=== PATIENT | female | born 1960 | race Caucasian/White ===

== ENCOUNTER 2022-01-16 15:34 | Inpatient (IN) | payer MEDICARE, OTHER ==
--- NOTE | 2022-01-16 17:14 | ED ---
Wound/Laceration HPI - General Chief Complaint: Wound/Laceration Stated Complaint: Wound care Time Seen by Provider: 01/16/22 16:03 Source: patient, EMS, RN notes reviewed Mode of arrival: EMS - History of Present Illness Initial Comments: This is a 61 year old female who presents to the emergency Department as a transfer from [facility]. She was transferred for an abdominal wall infection with necrosis and cellulitis measuring [id number]. She has a hx of an abdominal abscess that is now resolved. WBC was 15.6 and lactic acid was within normal limits at [facility]. She was given a dose of Zosyn in the emergency department at that facility. She was admitted here from 01/02-01/04 for surgical debridement of the wound. The wound had been healing well up until 1-2 days ago when the tissue started turning black. Denies any fevers, chills, shortness of breath, chest pain, nausea, or vomiting. - Related Data Home Medications Medication Instructions Recorded Confirmed Ibuprofen 800 mg PO TID PRN 08/24/17 01/16/22 metFORMIN HCL [Glucophage] 500 mg PO DAILY PRN 08/24/17 01/16/22 Docusate [Colace] 100 mg PO DAILY 12/29/21 01/16/22 LORazepam [Ativan] 0.5 mg PO HS PRN 12/29/21 01/16/22 Levothyroxine Sodium [Synthroid] 25 mcg PO DAILY 12/29/21 01/16/22 Topiramate [Topamax] 100 mg PO BID 12/29/21 01/16/22 Ziprasidone [Geodon] 60 mg PO BID-W/MEALS 12/29/21 01/16/22 lamoTRIgine [LaMICtal] 50 mg PO DAILY 12/29/21 01/16/22 Cyclobenzaprine [Flexeril] 5 mg PO Q8H PRN 01/16/22 01/16/22 Previous Rx's Medication Instructions Recorded Ibuprofen [Motrin] 600 mg PO Q6HR PRN #40 tab 01/03/22 Allergies Allergy/AdvReac Type Severity Reaction Status Date / Time No Known Allergies Allergy Verified 01/16/22 18:22 Review of Systems ROS Statement: Those systems with pertinent positive or pertinent negative responses have been documented in the HPI. ROS Other: All systems not noted in ROS Statement are negative. Constitutional: Denies: fever, chills ENT: Denies: ear pain, throat pain Respiratory: Denies: cough, dyspnea Cardiovascular: Denies: chest pain, palpitations Gastrointestinal: Reports: abdominal pain. Denies: nausea, vomiting, diarrhea Genitourinary: Denies: urgency, dysuria Skin: Reports: other (abdominal ulcer) Neurological: Denies: headache Past Medical History Past Medical History: Diabetes Mellitus, Thyroid Disorder Additional Past Medical History / Comment(s): infection of hernia mesh site 2018 and then again in 10/2020-seen in wound clinic History of Any Multi-Drug Resistant Organisms: None Reported Past Surgical History: Section, Hernia Repair Additional Past Surgical History / Comment(s): hernia 2018. sx to remove fluid from prior hernia site Oct 2020. colonoscopy Past Anesthesia/Blood Transfusion Reactions: No Reported Reaction Past Psychological History: Bipolar, Schizoaffective Disorder Smoking Status: Current every day smoker Past Alcohol Use History: Occasional Past Drug Use History: None Reported - Past Family History Mother Family Medical History: No Reported History General Exam Limitations: no limitations General appearance: alert, in no apparent distress Head exam: Present: atraumatic, normocephalic, normal inspection Respiratory exam: Present: normal lung sounds bilaterally. Absent: respiratory distress, wheezes, rales, rhonchi, stridor Cardiovascular Exam: Present: regular rate, normal rhythm, normal heart sounds. Absent: systolic murmur, diastolic murmur, rubs, gallop, clicks GI/Abdominal exam: Present: other (abdominal wall ulceration measuring 10 x 15cm. Ulceration is packed with gauze, there is surrounding black necrotic tissue with associated foul odor.) Neurological exam: Present: alert, oriented X3, CN II-XII intact Psychiatric exam: Present: normal affect, normal mood Skin exam: Present: warm, dry Course Vital Signs 01/16/22 15:54 Temperature 98.2 F Pulse Rate 90 Respiratory 14 Rate Blood Pressure 140/76 O2 Sat by Pulse 97 Oximetry Medical Decision Making - Medical Decision Making This is a 61-year-old female who presents to the emergency department for an abdominal wall ulcer. No additional workup in this emergency department obtained, as this was all done at [facility]. Patient will be continued on Zosyn every 8 hours. She will be admitted to Dr. Villalobos, general surgery, with Dr. Srivastava consulted for medical management and Dr. Aguilar as infectious disease consult. This case was discussed in detail with the attending ED physician. Presentation, findings, and treatment plan discussed in detail as well. Disposition Clinical Impression: Skin ulcer of abdomen Disposition: ADMITTED IP TO THIS HOSP
[2022-01-16] MEDS ORDERED: SODIUM CHLORIDE 0.9% 1,000 ML IV STA (17:17)
[2022-01-16] MEDS ORDERED: NALOXONE 0.4 MG/ML 1 ML VIAL IV PRN (17:23)
[2022-01-16] MEDS ORDERED: LORazepam 2 MG/ML INJ IV PRN (17:23)
[2022-01-16] MEDS ORDERED: HYDROmorphone 0.5 MG/0.5 ML SYRINGE IVP PRN (17:23)
[2022-01-16] MEDS ORDERED: ACETAMINOPHEN TAB 325 MG TAB PO PRN (17:23)
[2022-01-16] MEDS: ONDANSETRON 4 MG/2 ML VIAL IVP PRN (18:04)
[2022-01-16] MEDS: HYDROmorphone 1 MG/ML 1 ML SYRINGE IVP PRN (21:59)
[2022-01-16] MEDS: PIPERACILLIN-TAZOBACTAM 3.375 GM in SODIUM CHLORIDE 0.9% 100 ML IVPB SCH (22:00)
[2022-01-17] MEDS: HYDROmorphone 1 MG/ML 1 ML SYRINGE IVP PRN ×3 (08:17→20:38)
[2022-01-17 09:30] LABS: Basophils # (A) 0.1 k/uL (0-0.2); Basophils % (A) 0 %; Eosinophils # (A) 0.5 k/uL (0-0.7); Eosinophils % (A) 4 %; HCT 34.8 % (34.0-46.0); Hypochromasia Moderate; Lymphocytes # (A) 2.5 k/uL (1.0-4.8); Lymphocytes % (A) 20 %; MCH 32.3 pg (25.0-35.0); MCHC 30.9 g/dL (31.0-37.0); MCV 104.6 fL (80.0-100.0); Macrocytosis Slight; Mean Platelet Volume 7.4; Monocytes # (A) 0.7 k/uL (0-1.0); Monocytes % (A) 6 %; Neutrophils # (A) 8.5 k/uL (1.3-7.7); Neutrophils % (A) 68 %; RBC 3.33 m/uL (3.80-5.40); RDW 13.9 % (11.5-15.5); WBC 12.5 k/uL (3.8-10.6)
[2022-01-17 09:37] LABS: HGB 10.7 gm/dL (11.4-16.0); Platelet Count 483 k/uL (150-450)
[2022-01-17 09:43] LABS: ALT 54 U/L (4-34); AST 41 U/L (14-36); African American GFR (CKD) >90 (>60 ml/min/1.73 sqM); Albumin 2.7 g/dL (3.5-5.0); Albumin/Globulin Ratio 0.8; Alkaline Phosphatase 133 U/L (38-126); Anion Gap 6 mmol/L; Blood Urea Nitrogen 12 mg/dL (7-17); Calcium 8.2 mg/dL (8.4-10.2); Carbon Dioxide 16 mmol/L (22-30); Chloride 113 mmol/L (98-107); Globulin 3.2 g/dL; Glucose 134 mg/dL (74-99); Non-African American GFR(CKD) >90 (>60 ml/min/1.73 sqM); Potassium 3.8 mmol/L (3.5-5.1); Sodium 135 mmol/L (137-145); Total Bilirubin 1.1 mg/dL (0.2-1.3); Total Protein 5.9 g/dL (6.3-8.2)
[2022-01-17] MEDS: PIPERACILLIN-TAZOBACTAM 3.375 GM in SODIUM CHLORIDE 0.9% 100 ML IVPB SCH ×2 (10:18→17:28)
[2022-01-17] MEDS ORDERED: DEXAMETHASONE SOD PHOSPHATE 4 MG/ML 1 ML VIAL IV ONE (12:35)
--- NOTE | 2022-01-17 13:46 | P.CONS ---
History of Present Illness - Reason for Consult Consult date: 01/17/22 Medical management - Chief Complaint Abdominal wall wound infection - History of Present Illness Patient is a 61-year-old female with a known history of diabetes type 2 [id number], hypothyroidism, bipolar disorder/schizoaffective disorder and history of infection of hernia surgical site in 2018 and again in October 2020 status post surgery and currently following [facility] wound care center was brought to the hospital transferred to ER from [facility]. Patient was found to have abdominal wall infection with necrosis and surrounding cellulitis around 10 x 15 cm size. Patient states that she was having black scab and pain over the infection site. Patient was on wound VAC. Patient was admitted to the hospital for surgical wound debridement.. And also foul-smelling. Patient was found to have elevated WBC count of 15.6 and lactic acid was within normal limits. Patient was given a dose of Zosyn and was transferred to [facility] to be evaluated by general surgery. Laboratory data showed here WBC 12.5 hemoglobin 10.7 and platelets 483 Sodium 135 potassium 3.8 chloride 113 bicarb is 16 BUN 12 and creatinine 0.65 Blood sugar is 134 calcium 8.3 AST 41 ALT 54 alk phos 133 and albumin 2.7 a Patient has been afebrile and saturating at 97% on room air. Review of Systems Constitutional: Patient denies any fever or chills . No generalized weakness or weight loss. Abdomen: Patient denied nausea vomiting and diarrhea and abdominal pain. Cardiovascular: Patient denies any chest pain or short of breath no palpitations. Respiratory: patient denied any cough is from production. No shortness of bhakti ath Neurologic: Patient denied any numbness or tingling headache. Musculoskeletal: Patient denies any complaints of joint swelling or deformity. Skin: Abdominal wound infection Psychiatric: Negative Endocrine: No heat or cold intolerance. No recent weight gain. Genitourinary: No dysuria or hematuria. All other 14 point ROS negative except the above Past Medical History Past Medical History: Diabetes Mellitus, Thyroid Disorder Additional Past Medical History / Comment(s): infection of hernia mesh site 2018 and then again in 10/2020-seen in wound clinic History of Any Multi-Drug Resistant Organisms: None Reported Past Surgical History: Section, Hernia Repair Additional Past Surgical History / Comment(s): hernia 2018. sx to remove fluid from prior hernia site Oct 2020. colonoscopy Past Anesthesia/Blood Transfusion Reactions: No Reported Reaction Past Psychological History: Bipolar, Schizoaffective Disorder Smoking Status: Current every day smoker Past Alcohol Use History: Occasional Additional Past Alcohol Use History / Comment(s): CURRENTLY SMOKES < 1PPD SINCE AGE 20'S-QUIT OFF AN ON THROUGH THE YEARS Past Drug Use History: None Reported - Past Family History Mother Family Medical History: No Reported History Medications and Allergies Home Medications Medication Instructions Recorded Confirmed Type Ibuprofen 800 mg PO TID PRN 08/24/17 01/16/22 History metFORMIN HCL [Glucophage] 500 mg PO DAILY PRN 08/24/17 01/16/22 History Docusate [Colace] 100 mg PO DAILY 12/29/21 01/16/22 History LORazepam [Ativan] 0.5 mg PO HS PRN 12/29/21 01/16/22 History Levothyroxine Sodium [Synthroid] 25 mcg PO DAILY 12/29/21 01/16/22 History Topiramate [Topamax] 100 mg PO BID 12/29/21 01/16/22 History Ziprasidone [Geodon] 60 mg PO BID-W/MEALS 12/29/21 01/16/22 History lamoTRIgine [LaMICtal] 50 mg PO DAILY 12/29/21 01/16/22 History Ibuprofen [Motrin] 600 mg PO Q6HR PRN #40 tab 01/03/22 01/16/22 Rx Cyclobenzaprine [Flexeril] 5 mg PO Q8H PRN 01/16/22 01/16/22 History Allergies Allergy/AdvReac Type Severity Reaction Status Date / Time No Known Allergies Allergy Verified 01/16/22 18:22 Physical Exam Vitals: Vital Signs Temp Pulse Pulse Resp BP BP Pulse Ox 01/17/22 08:35 85 19 01/17/22 07:57 98.1 F 85 19 129/69 100 01/17/22 02:00 98.1 F 74 16 110/72 96 01/16/22 20:56 98.3 F 89 16 135/78 97 01/16/22 20:21 89 18 01/16/22 15:54 98.2 F 90 14 140/76 97 Intake and Output 01/16/22 01/17/22 01/17/22 22:59 06:59 14:59 Intake Total 100 Balance 100 Intake: Intake, IV Titration 100 Amount Piperacillin-Tazobactam 3 100 .375 gm In Sodium Chloride 0.9% 100 ml @ 25 mls/hr IVPB Q8HR [facility] Rx# :[id number] Other: Voiding Method Toilet Toilet # Voids 3 Weight 136.078 kg PHYSICAL EXAMINATION: Patient is lying in the bed comfortably, no acute distress, awake alert and oriented. Morbidly obese.. HEENT: Normocephalic. Neck is supple. Pupils reactive. Nostrils clear. Oral cavity is moist. Neck reveals no JVD, carotid bruits, or thyromegaly. CHEST EXAMINATION: Trachea is central. Symmetrical expansion. Bibasilar diminished sounds. Lung love clear to auscultation and percussion. CARDIAC: Normal S1, S2 with no gallops. No murmurs ABDOMEN: Soft. Bowel sounds normal. No organomegaly. No abdominal bruits. Extremities: reveal no edema. No clubbing or cyanosis Neurologically awake, alert, oriented x3 with well-coordinated movements. No focal deficits noted Skin: No rash. Patient was found have right lower, mid abdominal wound 10 x 15 cm in size with purulent base and foul-smelling. Surrounding redness. Psychiatric: Coperative. Nonsuicidal Musculoskeletal: No joint swelling or deformity. Normal range of motion. Results CBC & Chem 7: 01/17/22 09:11 01/17/22 09:15 Labs: Abnormal Lab Results - Last 24 Hours (Table) 01/17/22 01/17/22 Range/Units 09:11 09:15 WBC 12.5 H (3.8-10.6) k/uL RBC 3.33 L (3.80-5.40) m/uL Hgb 10.7 L D (11.4-16.0) gm/dL MCV 104.6 H (80.0-100.0) fL MCHC 30.9 L (31.0-37.0) g/dL Plt Count 483 H D (150-450) k/uL Neutrophils # 8.5 H (1.3-7.7) k/uL Sodium 135 L (137-145) mmol/L Chloride 113 H (98-107) mmol/L Carbon Dioxide 16 L (22-30) mmol/L Glucose 134 H (74-99) mg/dL Calcium 8.2 L (8.4-10.2) mg/dL AST 41 H (14-36) U/L ALT 54 H (4-34) U/L Alkaline Phosphatase 133 H (38-126) U/L Total Protein 5.9 L (6.3-8.2) g/dL Albumin 2.7 L (3.5-5.0) g/dL Assessment and Plan Assessment: Abdominal wall wound infection with purulent discharge and foul-smelling. History of debridement with wound VAC on 01/02/2022. Diabetes type 2 [id number] Hypothyroidism Bipolar/schizoaffective disorder Macrocytic anemia hemoglobin 10.7 morbid obesity BMI 47.0 DVT prophylaxis with Lovenox subcu. Plan: Patient will be continued on antibiotics in form of Zosyn. General surgery is planning for debridement and possible wound VAC today. Continued with pain management and follow up culture reports. Continue with insulin sliding scale andbetter blood sugar control and continue with home medications and follow closely. Further recommendations based on the clinical course. Thank you for your consult. Time with Patient: Greater than 30
--- NOTE | 2022-01-17 15:20 | P.GSHP ---
History of Present Illness H&P Date: 01/17/22 CHIEF COMPLAINT: Abdominal wall wound infection HISTORY OF PRESENT ILLNESS: This is a 61-year-old female with abdominal wound VAC infection. Patient has had prior abdominal wound infections. Patient had incisional hernia repair and removal of infected mesh and placement of wound VAC on 01/02/2022. Patient reports that she had been doing well and then went to follow-up with the wound care service yesterday and was found to have infection at the abdominal wound site and necrotic tissue. She reports noting that the tissue along the abdominal wall had started turning darker color of the last 1-2 days. She was transferred from [facility]. She did have a white count of 15.6 and lactic acid was normal at that time. Patient denies any fever chills or sweats. Denies any nausea or vomiting. PAST MEDICAL HISTORY: Diabetes mellitus hypothyroidism, bipolar and schizophrenic PAST SURGICAL HISTORY: Infected hernia mesh site in 2019, , hernia repair MEDICATIONS: See list. ALLERGIES: See list. SOCIAL HISTORY: No illicit drug use. Nicotine dependence REVIEW OF SYSTEMS: CONSTITUTIONAL: Denies fever or chills. HEENT: Denies blurred vision, vision changes, or eye pain. Denies hemoptysis CARDIOVASCULAR: Denies chest pain or pressure. RESPIRATORY: No shortness of breath. GASTROINTESTINAL: See HPI for pertinent findings HEMATOLOGIC: Denies bleeding disorders. GENITOURINARY: Denies any blood in urine or increased urinary frequency. SKIN: Denies pruitis. Denies rash. PHYSICAL EXAM: VITAL SIGNS: Reviewed GENERAL: Well-developed in no acute distress. HEENT: No sclera icterus. Extraocular movements grossly intact. Moist buccal mucosa. Head is atraumatic, normocephalic. No nasal drainage. ABDOMEN: Soft. Obese. Nondistended. Patient has a 10 x 15 cm abdominal wall wound. There is necrotic tissue along the right lower border. There is a follow odor and drainage noted. NEUROLOGIC: Alert and oriented. Cranial nerves II through XII grossly intact. LABORATORY DATA: WBC is 12.5 hemoglobin 10.7 platelets 483 Sodium 135 potassium 3.8 CO2 16 creatinine 0.65 AST 41 ALT 54 alk phos 133 IMAGING: ASSESSMENT: 1. Abdominal wound VAC infection PLAN: -Patient scheduled for debridement of abdominal wound VAC infection tomorrow, 01/18/[address] bhesania -Keep patient nothing by mouth after midnight -Continue IV antibiotics -Continue IV fluids -Consult infectious disease for abdominal wound VAC infection -Consult medicine service for medical management -Continue pain medication as needed Physician Shrimp Peeler note has been reviewed by physician. Signing provider agrees with the documented findings, assessment, and plan of care. Past Medical History Past Medical History: Diabetes Mellitus, Thyroid Disorder Additional Past Medical History / Comment(s): infection of hernia mesh site 2018 and then again in 10/2020-seen in wound clinic History of Any Multi-Drug Resistant Organisms: None Reported Past Surgical History: Section, Hernia Repair Additional Past Surgical History / Comment(s): hernia 2018. sx to remove fluid from prior hernia site Oct 2020. colonoscopy Past Anesthesia/Blood Transfusion Reactions: No Reported Reaction Past Psychological History: Bipolar, Schizoaffective Disorder Smoking Status: Current every day smoker Past Alcohol Use History: Occasional Additional Past Alcohol Use History / Comment(s): CURRENTLY SMOKES < 1PPD SINCE AGE 20'S-QUIT OFF AN ON THROUGH THE YEARS Past Drug Use History: None Reported - Past Family History Mother Family Medical History: No Reported History Medications and Allergies Home Medications Medication Instructions Recorded Confirmed Type Ibuprofen 800 mg PO TID PRN 08/24/17 01/16/22 History metFORMIN HCL [Glucophage] 500 mg PO DAILY PRN 08/24/17 01/16/22 History Docusate [Colace] 100 mg PO DAILY 12/29/21 01/16/22 History LORazepam [Ativan] 0.5 mg PO HS PRN 12/29/21 01/16/22 History Levothyroxine Sodium [Synthroid] 25 mcg PO DAILY 12/29/21 01/16/22 History Topiramate [Topamax] 100 mg PO BID 12/29/21 01/16/22 History Ziprasidone [Geodon] 60 mg PO BID-W/MEALS 12/29/21 01/16/22 History lamoTRIgine [LaMICtal] 50 mg PO DAILY 12/29/21 01/16/22 History Ibuprofen [Motrin] 600 mg PO Q6HR PRN #40 tab 01/03/22 01/16/22 Rx Cyclobenzaprine [Flexeril] 5 mg PO Q8H PRN 01/16/22 01/16/22 History Allergies Allergy/AdvReac Type Severity Reaction Status Date / Time No Known Allergies Allergy Verified 01/16/22 18:22 Surgical - Exam Vital Signs Temp Pulse Resp BP Pulse Ox 98.2 F 90 14 140/76 97 01/16/22 15:54 01/16/22 15:54 01/16/22 15:54 01/16/22 15:54 01/16/22 15:54 Results - Labs 01/17/22 09:11 01/17/22 09:15 Abnormal Lab Results - Last 24 Hours (Table) 01/17/22 01/17/22 Range/Units 09:11 09:15 WBC 12.5 H (3.8-10.6) k/uL RBC 3.33 L (3.80-5.40) m/uL Hgb 10.7 L D (11.4-16.0) gm/dL MCV 104.6 H (80.0-100.0) fL MCHC 30.9 L (31.0-37.0) g/dL Plt Count 483 H D (150-450) k/uL Neutrophils # 8.5 H (1.3-7.7) k/uL Sodium 135 L (137-145) mmol/L Chloride 113 H (98-107) mmol/L Carbon Dioxide 16 L (22-30) mmol/L Glucose 134 H (74-99) mg/dL Calcium 8.2 L (8.4-10.2) mg/dL AST 41 H (14-36) U/L ALT 54 H (4-34) U/L Alkaline Phosphatase 133 H (38-126) U/L Total Protein 5.9 L (6.3-8.2) g/dL Albumin 2.7 L (3.5-5.0) g/dL Diabetes panel 01/17/22 Range/Units 09:15 Sodium 135 L (137-145) mmol/L Potassium 3.8 (3.5-5.1) mmol/L Chloride 113 H (98-107) mmol/L Carbon Dioxide 16 L (22-30) mmol/L BUN 12 (7-17) mg/dL Creatinine 0.65 (0.52-1.04) mg/dL Glucose 134 H (74-99) mg/dL Calcium 8.2 L (8.4-10.2) mg/dL AST 41 H (14-36) U/L ALT 54 H (4-34) U/L Alkaline Phosphatase 133 H (38-126) U/L Total Protein 5.9 L (6.3-8.2) g/dL Albumin 2.7 L (3.5-5.0) g/dL Calcium panel 01/17/22 Range/Units 09:15 Calcium 8.2 L (8.4-10.2) mg/dL Albumin 2.7 L (3.5-5.0) g/dL Pituitary panel 01/17/22 Range/Units 09:15 Sodium 135 L (137-145) mmol/L Potassium 3.8 (3.5-5.1) mmol/L Chloride 113 H (98-107) mmol/L Carbon Dioxide 16 L (22-30) mmol/L BUN 12 (7-17) mg/dL Creatinine 0.65 (0.52-1.04) mg/dL Glucose 134 H (74-99) mg/dL Calcium 8.2 L (8.4-10.2) mg/dL Adrenal panel 01/17/22 Range/Units 09:15 Sodium 135 L (137-145) mmol/L Potassium 3.8 (3.5-5.1) mmol/L Chloride 113 H (98-107) mmol/L Carbon Dioxide 16 L (22-30) mmol/L BUN 12 (7-17) mg/dL Creatinine 0.65 (0.52-1.04) mg/dL Glucose 134 H (74-99) mg/dL Calcium 8.2 L (8.4-10.2) mg/dL Total Bilirubin 1.1 (0.2-1.3) mg/dL AST 41 H (14-36) U/L ALT 54 H (4-34) U/L Alkaline Phosphatase 133 H (38-126) U/L Total Protein 5.9 L (6.3-8.2) g/dL Albumin 2.7 L (3.5-5.0) g/dL
[2022-01-17 17:05] VITALS: BMI 47.0
--- NOTE | 2022-01-18 00:18 | P.CONS ---
History of Present Illness - Reason for Consult Consult date: 01/17/22 Nonhealing abdominal ulcer Requesting physician: Jaime Jimenez - Chief Complaint Worsening abdominal wound x few days - History of Present Illness Patient is a 61-year female with a past medical he significant for incisional hernia repair this patient subsequently admitted to the hospital with an infected mesh which was removed patient did have debridement of the wound and application of the wound VAC on 01/02/2022 patient abdominal culture data was positive for beta-hemolytic Streptococcus and anaerobic gram-negative bacilli. Patient was treated with oral antibiotic and local wound care with a wound VAC patient mention she was doing well with the wound VAC was changed on Sunday however when she went to the wound care center yesterday and [place] in the wound VAC was removed she was noticed to have necrosis of the underlying wound patient was sent to the [facility] in [place] the patient was noticed to have necrosis and cellulitis of the abdominal wound patient did have a elevated white count of 15,000 patient was given a dose of Zosyn and subsequently has been transferred to this facility patient has been continued on Zosyn infectious he was consulted for further management of antibiotic therapy, patient been complaining of abdominal pain more of a dull aching to sharp about 5 out of 10 in radiation to have some foul-smelling drainage from the abdominal wound Review of Systems Positive point has been mentioned in the HPI rest of the systems are negative Past Medical History Past Medical History: Diabetes Mellitus, Thyroid Disorder Additional Past Medical History / Comment(s): infection of hernia mesh site 2018 and then again in 10/2020-seen in wound clinic History of Any Multi-Drug Resistant Organisms: None Reported Past Surgical History: Section, Hernia Repair Additional Past Surgical History / Comment(s): hernia 2018. sx to remove fluid from prior hernia site Oct 2020. colonoscopy Past Anesthesia/Blood Transfusion Reactions: No Reported Reaction Past Psychological History: Bipolar, Schizoaffective Disorder Smoking Status: Current every day smoker Past Alcohol Use History: Occasional Additional Past Alcohol Use History / Comment(s): CURRENTLY SMOKES < 1PPD SINCE AGE 22'S-QUIT OFF AN ON THROUGH THE YEARS Past Drug Use History: None Reported - Past Family History Mother Family Medical History: No Reported History Medications and Allergies Home Medications Medication Instructions Recorded Confirmed Type Ibuprofen 800 mg PO TID PRN 08/24/17 01/16/22 History metFORMIN HCL [Glucophage] 500 mg PO DAILY PRN 08/24/17 01/16/22 History Docusate [Colace] 100 mg PO DAILY 12/29/21 01/16/22 History LORazepam [Ativan] 0.5 mg PO HS PRN 12/29/21 01/16/22 History Levothyroxine Sodium [Synthroid] 25 mcg PO DAILY 12/29/21 01/16/22 History Topiramate [Topamax] 100 mg PO BID 12/29/21 01/16/22 History Ziprasidone [Geodon] 60 mg PO BID-W/MEALS 12/29/21 01/16/22 History lamoTRIgine [LaMICtal] 50 mg PO DAILY 12/29/21 01/16/22 History Ibuprofen [Motrin] 600 mg PO Q6HR PRN #40 tab 01/03/22 01/16/22 Rx Cyclobenzaprine [Flexeril] 5 mg PO Q8H PRN 01/16/22 01/16/22 History Allergies Allergy/AdvReac Type Severity Reaction Status Date / Time No Known Allergies Allergy Verified 01/16/22 18:22 Physical Exam Vitals: Vital Signs Temp Pulse Pulse Resp BP BP Pulse Ox 01/17/22 08:35 85 19 01/17/22 07:57 98.1 F 85 19 129/69 100 01/17/22 02:00 98.1 F 74 16 110/72 96 01/16/22 20:56 98.3 F 89 16 135/78 97 01/16/22 20:21 89 18 01/16/22 15:54 98.2 F 90 14 140/76 97 Intake and Output 01/16/22 01/17/22 01/17/22 22:59 06:59 14:59 Intake Total 100 Balance 100 Intake: Intake, IV Titration 100 Amount Piperacillin-Tazobactam 3 100 .375 gm In Sodium Chloride 0.9% 100 ml @ 25 mls/hr IVPB Q8HR [facility] Rx# :[id number] Other: Voiding Method Toilet Toilet # Voids 3 Weight 136.078 kg GENERAL DESCRIPTION: Middle-aged female lying in bed, no distress. No tachypnea or accessory muscle of respiration use. HEENT: Shows Pallor , no scleral icterus. Oral mucous membrane is dry. No pharyngeal erythema or thrush NECK: Trachea central, no thyromegaly. LUNGS: Unlabored breathing. Clear to auscultation anteriorly. No wheeze or crackle. HEART: S1, S2, regular rate and rhythm. No loud murmur ABDOMEN: Soft, midline abdominal wound with significant necrosis and foul- smelling drainage EXTREMITIES: No edema of feet. SKIN: No rash, no masses palpable. NEUROLOGICAL: The patient is awake, alert, oriented x3, mood and affect normal. Results CBC & Chem 7: 01/17/22 09:11 01/17/22 09:15 Labs: Abnormal Lab Results - Last 24 Hours (Table) 01/17/22 01/17/22 Range/Units 09:11 09:15 WBC 12.5 H (3.8-10.6) k/uL RBC 3.33 L (3.80-5.40) m/uL Hgb 10.7 L D (11.4-16.0) gm/dL MCV 104.6 H (80.0-100.0) fL MCHC 30.9 L (31.0-37.0) g/dL Plt Count 483 H D (150-450) k/uL Neutrophils # 8.5 H (1.3-7.7) k/uL Sodium 135 L (137-145) mmol/L Chloride 113 H (98-107) mmol/L Carbon Dioxide 16 L (22-30) mmol/L Glucose 134 H (74-99) mg/dL Calcium 8.2 L (8.4-10.2) mg/dL AST 41 H (14-36) U/L ALT 54 H (4-34) U/L Alkaline Phosphatase 133 H (38-126) U/L Total Protein 5.9 L (6.3-8.2) g/dL Albumin 2.7 L (3.5-5.0) g/dL Assessment and Plan (1) Abdominal wall cellulitis Current Visit: Yes Status: Acute Code(s): L03.311 - CELLULITIS OF ABDOMINAL WALL SNOMED Code(s): 22321342 Plan: 1patient with abdominal wound infection in this patient started with infected mesh which was discontinued on her recent visit and is status post debridement of the wound culture that was positive for strep and anaerobic gram-negative w ith worsening of abdominal wound and concern for possible deep infection. 2patient will benefit from debridement of all the necrotic tissue and the deep culture that will guide further antibiotic therapy. 3continue with the Zosyn 3.375 g every 8 hours We will follow on clinical condition and cultures to further adjust medication if needed Thank you for this consultation will follow this patient along with you Time with Patient: Greater than 30
[2022-01-18] MEDS: PIPERACILLIN-TAZOBACTAM 3.375 GM in SODIUM CHLORIDE 0.9% 100 ML IVPB SCH ×3 (00:36→16:24)
[2022-01-18] MEDS: LACTATED RINGERS 1,000 ML IV SCH ×2 (00:37→21:38)
[2022-01-18] MEDS: HYDROmorphone 1 MG/ML 1 ML SYRINGE IVP PRN ×5 (00:41→20:52)
[2022-01-18 06:15] LABS: Basophils # (A) 0.1 k/uL (0-0.2); Basophils % (A) 1 %; Eosinophils # (A) 0.5 k/uL (0-0.7); Eosinophils % (A) 5 %; HCT 34.5 % (34.0-46.0); HGB 10.7 gm/dL (11.4-16.0); Hypochromasia Marked; Lymphocytes # (A) 3.1 k/uL (1.0-4.8); Lymphocytes % (A) 28 %; MCH 32.7 pg (25.0-35.0); MCHC 30.9 g/dL (31.0-37.0); MCV 105.6 fL (80.0-100.0); Macrocytosis Moderate; Mean Platelet Volume 7.1; Monocytes # (A) 0.6 k/uL (0-1.0); Monocytes % (A) 5 %; Neutrophils # (A) 6.4 k/uL (1.3-7.7); Neutrophils % (A) 58 %; Platelet Count 541 k/uL (150-450); RBC 3.27 m/uL (3.80-5.40); RDW 14.5 % (11.5-15.5)
[2022-01-18 06:28] LABS: African American GFR (CKD) 80 (>60 ml/min/1.73 sqM); Anion Gap 9 mmol/L; Blood Urea Nitrogen 15 mg/dL (7-17); Calcium 8.2 mg/dL (8.4-10.2); Carbon Dioxide 21 mmol/L (22-30); Chloride 108 mmol/L (98-107); Glucose 118 mg/dL (74-99); Non-African American GFR(CKD) 69 (>60 ml/min/1.73 sqM); Sodium 138 mmol/L (137-145)
[2022-01-18] MEDS ORDERED: HYDROmorphone 0.5 MG/0.5 ML SYRINGE IVP PRN (07:00)
[2022-01-18] MEDS: ENOXAPARIN 40 MG/0.4 ML SYRINGE SQ SCH (10:06)
[2022-01-18] MEDS ORDERED: IV FLUID CONTINUATION 1,000 ML IV ONE (13:29)
[2022-01-18] MEDS ORDERED: HEPARIN SODIUM,PORCINE/PF 5,000 UNIT/0.5 ML SYRINGE SQ ONE (17:39)
[2022-01-18] MEDS: ONDANSETRON 4 MG/2 ML VIAL IVP PRN (17:45)
[2022-01-18 17:48] LABS: Glucose,Whole Blood 95 mg/dL (75-99)
[2022-01-18] MEDS ORDERED: HYDROmorphone (PF) 1 MG/ML ONE (18:35)
[2022-01-18] MEDS ORDERED: fentaNYL (PF) 50 MCG/ML 2 ML AMP ONE (18:35)
[2022-01-18] MEDS ORDERED: PROPOFOL 10 MG/ML 20 ML VIAL IV ONE (18:35)
[2022-01-18] MEDS ORDERED: SUCCINYLCHOLINE CHLORIDE 100 MG/5 ML SYR IV ONE (18:35)
[2022-01-18] MEDS ORDERED: LIDOCAINE 2% INJ 20 MG/ML (2 ML VIAL) ONE (18:35)
[2022-01-18] MEDS ORDERED: MIDAZOLAM 2 MG/2 ML VIAL ONE (18:35)
[2022-01-18] MEDS ORDERED: LACTATED RINGERS 1,000 ML IV ONE (19:06)
[2022-01-18] MEDS ORDERED: HYDROmorphone 1 MG/ML 1 ML SYRINGE IVP PRN (19:16)
[2022-01-18] MEDS ORDERED: HYDROcodone/APAP 7.5-325MG 1 EACH TAB PO PRN (19:16)
--- NOTE | 2022-01-18 19:18 | P.OP ---
Date of Procedure: 01/18/22 Preoperative Diagnosis: Abdominal wall wound infection Postoperative Diagnosis: Abdominal wall wound infection with necrotic fat Procedure(s) Performed: Debridement of abdominal wall Anesthesia: SCOTT Surgeon: Serg Villalobos Estimated Blood Loss (ml): 25 Pathology: other (Necrotic fat) Condition: stable Disposition: PACU Operative Findings: Wound measures 20 x 15 x 6 cm Description of Procedure: The patient's placed on the operative table in the supine position. She received general endotracheal tube. Her abdomen was prepped and draped usual fashion. The patient had a previously removed infected abdominal wall mesh. The wound cavities exam. Appeared to be evidence of ischemic fat. The wound was sharply dissected using a 15 blade. Hemostasis was achieved left cautery. After debridement the wound measured 15 x 26 cm. Betadine soaked Kerlix gauzes placed in the wound. Sterile dressing applied. Patient tolerated the procedure well.
[2022-01-18 21:22] LABS: Basophils # (A) 0.1 k/uL (0-0.2); Basophils % (A) 1 %; Eosinophils # (A) 0.6 k/uL (0-0.7); Eosinophils % (A) 6 %; HGB 10.6 gm/dL (11.4-16.0); Hypochromasia Moderate; Lymphocytes # (A) 2.4 k/uL (1.0-4.8); Lymphocytes % (A) 23 %; MCH 32.8 pg (25.0-35.0); MCHC 31.1 g/dL (31.0-37.0); MCV 105.7 fL (80.0-100.0); Macrocytosis Moderate; Mean Platelet Volume 7.3; Monocytes # (A) 0.4 k/uL (0-1.0); Monocytes % (A) 4 %; Neutrophils # (A) 6.6 k/uL (1.3-7.7); Neutrophils % (A) 64 %; Platelet Count 510 k/uL (150-450); RBC 3.22 m/uL (3.80-5.40); RDW 14.1 % (11.5-15.5); WBC 10.2 k/uL (3.8-10.6)
--- NOTE | 2022-01-18 22:31 | P.PN ---
Subjective Progress Note Date: 01/18/22 Patient is a 61-year-old female with a known history of diabetes type 2 dgn-fjsgbot-zyaahatvw, hypothyroidism, bipolar disorder/schizoaffective disorder and history of infection of hernia surgical site in 2018 and again in October 2020 status post surgery and currently following [facility] wound care center was brought to the hospital transferred to ER from [facility]. Patient was found to have abdominal wall infection with necrosis and surrounding cellulitis around 10 x 15 cm size. Patient states that she was having black scab and pain over the infection site. Patient was on wound VAC. Patient was admitted to the hospital for surgical wound debridement.. And also foul-smelling. Patient was found to have elevated WBC count of 15.6 and lactic acid was within normal limits. Patient was given a dose of Zosyn and was transferred to [facility] to be evaluated by general surgery. Laboratory data showed here WBC 12.5 hemoglobin 10.7 and platelets 483 Sodium 135 potassium 3.8 chloride 113 bicarb is 16 BUN 12 and creatinine 0.65 Blood sugar is 134 calcium 8.3 AST 41 ALT 54 alk phos 133 and albumin 2.7 a Patient has been afebrile and saturating at 97% on room air. 01/18/2022 Patient is awake alert and oriented. Afebrile. Patient will be taken to the OR for wound debridement today. Arrives on antibiotics in the form of Zosyn. No cough or sputum production. No chest pain or shortness of breath. Laboratory data showed WBC 10.2 hemoglobin 10.6 and platelets 510. Recent B12 level is 397. Current medications reviewed. Objective - Vital Signs Vital signs: Vital Signs Temp 98.7 F 01/18/22 07:30 Pulse 79 01/18/22 09:08 Resp 14 01/18/22 05:00 BP 113/69 01/18/22 09:08 Pulse Ox 97 01/18/22 09:08 Intake & Output 01/17/22 01/18/22 01/18/22 18:59 06:59 18:59 Intake Total 200 100 Balance 200 100 Weight 136.078 kg Intake: Intake, IV Titration 200 Amount Piperacillin-Tazobactam 3 200 .375 gm In Sodium Chloride 0.9% 100 ml @ 25 mls/hr IVPB Q8HR [facility] Rx# :[id number] Oral 100 Other: Voiding Method Toilet Toilet # Voids 3 - Exam PHYSICAL EXAMINATION: Patient is lying in the bed comfortably, no acute distress, awake alert and oriented. Morbidly obese.. HEENT: Normocephalic. Neck is supple. Pupils reactive. Nostrils clear. Oral cavity is moist. Neck reveals no JVD, carotid bruits, or thyromegaly. CHEST EXAMINATION: Trachea is central. Symmetrical expansion. Bibasilar diminished sounds. Lung love clear to auscultation and percussion. CARDIAC: Normal S1, S2 with no gallops. No murmurs ABDOMEN: Soft. Bowel sounds normal. No organomegaly. No abdominal bruits. Extremities: reveal no edema. No clubbing or cyanosis Neurologically awake, alert, oriented x3 with well-coordinated movements. No focal deficits noted Skin: No rash. Patient was found have right lower, mid abdominal wound 10 x 15 cm in size with purulent base and foul-smelling. Surrounding redness. Psychiatric: Coperative. Nonsuicidal Musculoskeletal: No joint swelling or deformity. Normal range of motion. - Labs CBC & Chem 7: 01/18/22 20:51 01/18/22 05:37 Labs: Abnormal Lab Results - Last 24 Hours (Table) 01/18/22 01/18/22 Range/Units 05:37 05:37 WBC 11.0 H (3.8-10.6) k/uL RBC 3.27 L (3.80-5.40) m/uL Hgb 10.7 L (11.4-16.0) gm/dL MCV 105.6 H (80.0-100.0) fL MCHC 30.9 L (31.0-37.0) g/dL Plt Count 541 H (150-450) k/uL Chloride 108 H (98-107) mmol/L Carbon Dioxide 21 L (22-30) mmol/L Glucose 118 H (74-99) mg/dL Calcium 8.2 L (8.4-10.2) mg/dL Assessment and Plan Assessment: Abdominal wall wound infection with purulent discharge and foul-smelling. History of debridement with wound VAC on 01/02/2022. Diabetes type 2 [id number] Hypothyroidism Bipolar/schizoaffective disorder Macrocytic anemia hemoglobin 10.7, B12 397 morbid obesity BMI 47.0 DVT prophylaxis with Lovenox subcu. Plan: Patient will be continued on antibiotics in form of Zosyn. debridement and possible wound VAC today. Continued with pain management and follow up culture reports. Continue with insulin sliding scale andbetter blood sugar control and continue with home medications and follow closely. Further recommendations based on the clinical course.
--- NOTE | 2022-01-18 23:20 | P.PN ---
Subjective Progress Note Date: 01/18/22 Principal diagnosis: Abdominal wound infection Patient is a 61 year female with recent incisional hernia repair subsequently admitted to hospital with infected mesh was removed debridement of the wound and wound VAC application on 01/03/2020 to now with readmission to the hospital with worsening abdominal wound concerning for secondary infection. On today's evaluation that is 01/18/2022, patient denies having any fever or any chills, abdominal pain is currently controlled with pain medication, denies any chest pain shortness of breath or cough no nausea no vomiting and no diarrhea Objective - Vital Signs Vital signs: Vital Signs Temp 98.7 F 01/18/22 07:30 Pulse 79 01/18/22 09:08 Resp 14 01/18/22 05:00 BP 113/69 01/18/22 09:08 Pulse Ox 97 01/18/22 09:08 Intake & Output 01/17/22 01/18/22 01/18/22 18:59 06:59 18:59 Intake Total 200 100 Balance 200 100 Weight 136.078 kg Intake: Intake, IV Titration 200 Amount Piperacillin-Tazobactam 3 200 .375 gm In Sodium Chloride 0.9% 100 ml @ 25 mls/hr IVPB Q8HR [facility] Rx# :[id number] Oral 100 Other: Voiding Method Toilet Toilet Toilet # Voids 3 - Exam GENERAL DESCRIPTION: Middle-aged female lying in bed in no distress RESPIRATORY SYSTEM: Unlabored breathing , decreased breath sounds at bases HEART: S1 S2 regular rate and rhythm , ABDOMEN: Soft , abdominal wound is currently dressed EXTREMITIES: No edema feet - Labs CBC & Chem 7: 01/18/22 20:51 01/18/22 05:37 Labs: Abnormal Lab Results - Last 24 Hours (Table) 01/18/22 01/18/22 Range/Units 05:37 05:37 WBC 11.0 H (3.8-10.6) k/uL RBC 3.27 L (3.80-5.40) m/uL Hgb 10.7 L (11.4-16.0) gm/dL MCV 105.6 H (80.0-100.0) fL MCHC 30.9 L (31.0-37.0) g/dL Plt Count 541 H (150-450) k/uL Chloride 108 H (98-107) mmol/L Carbon Dioxide 21 L (22-30) mmol/L Glucose 118 H (74-99) mg/dL Calcium 8.2 L (8.4-10.2) mg/dL Assessment and Plan (1) Abdominal wall cellulitis Current Visit: Yes Status: Acute Code(s): L03.311 - CELLULITIS OF ABDOMINAL WALL SNOMED Code(s): 55926805 Plan: 1patient with abdominal wound infection in this patient started with infected mesh which was discontinued on her recent visit and is status post debridement of the wound culture that was positive for strep and anaerobic gram-negative with worsening of abdominal wound and concern for possible deep infection. 2patient is currently waiting for debridement of all the necrotic tissue and the deep culture that will guide further antibiotic therapy. 3patient to continue with the Zosyn 3.375 g every 8 hours Time with Patient: Less than 30
[2022-01-19] MEDS: PIPERACILLIN-TAZOBACTAM 3.375 GM in SODIUM CHLORIDE 0.9% 100 ML IVPB SCH ×3 (00:24→17:10)
[2022-01-19] MEDS: HYDROmorphone 1 MG/ML 1 ML SYRINGE IVP PRN ×6 (00:28→20:27)
[2022-01-19] MEDS: LACTATED RINGERS 1,000 ML IV SCH ×3 (05:31→22:12)
[2022-01-19 08:59] LABS: Basophils % (A) 0 %; Eosinophils # (A) 0.5 k/uL (0-0.7); Eosinophils % (A) 5 %; HCT 35.4 % (34.0-46.0); HGB 11.2 gm/dL (11.4-16.0); Hypochromasia Moderate; Lymphocytes # (A) 2.9 k/uL (1.0-4.8); Lymphocytes % (A) 25 %; MCH 33.1 pg (25.0-35.0); MCHC 31.6 g/dL (31.0-37.0); MCV 104.9 fL (80.0-100.0); Macrocytosis Moderate; Mean Platelet Volume 8.8; Monocytes # (A) 0.5 k/uL (0-1.0); Monocytes % (A) 5 %; Neutrophils # (A) 7.1 k/uL (1.3-7.7); Neutrophils % (A) 63 %; Platelet Count 604 k/uL (150-450); RBC 3.38 m/uL (3.80-5.40); RDW 14.5 % (11.5-15.5); WBC 11.2 k/uL (3.8-10.6)
[2022-01-19] MEDS: ENOXAPARIN 40 MG/0.4 ML SYRINGE SQ SCH (09:14)
[2022-01-19 09:50] LABS: African American GFR (CKD) 115.6 (60.0-200.0); Albumin 2.8 g/dL (3.8-4.9); Albumin/Globulin Ratio 0.88 (1.60-3.17); BUN/Creat Ratio 21.67 Ratio (12.00-20.00); Calcium 8.4 mg/dL (8.7-10.3); Globulin 3.2 g/dL (1.6-3.3); Non-African American GFR(CKD) 99.8 (60.0-200.0); Total Bilirubin 0.3 mg/dL (0.30-1.20)
--- NOTE | 2022-01-19 14:08 | P.PN ---
Subjective Progress Note Date: 01/19/22 Patient is a 61-year-old female with a known history of diabetes type 2 dqo-qyvypvg-jpucxbtss, hypothyroidism, bipolar disorder/schizoaffective disorder and history of infection of hernia surgical site in 2018 and again in October 2020 status post surgery and currently following get wound care center was brought to the hospital transferred to ER from [facility]. Patient was found to have abdominal wall infection with necrosis and surrounding cellulitis around 10 x 15 cm size. Patient states that she was having black scab and pain over the infection site. Patient was on wound VAC. Patient was admitted to the hospital for surgical wound debridement.. And also foul-smelling. Patient was found to have elevated WBC count of 15.6 and lactic acid was within normal limits. Patient was given a dose of Zosyn and was transferred to [facility] to be evaluated by general surgery. Laboratory data showed here WBC 12.5 hemoglobin 10.7 and platelets 483 Sodium 135 potassium 3.8 chloride 113 bicarb is 16 BUN 12 and creatinine 0.65 Blood sugar is 134 calcium 8.3 AST 41 ALT 54 alk phos 133 and albumin 2.7 a Patient has been afebrile and saturating at 97% on room air. 01/18/2022 Patient is awake alert and oriented. Afebrile. Patient will be taken to the OR for wound debridement today. Arrives on antibiotics in the form of Zosyn. No cough or sputum production. No chest pain or shortness of breath. Laboratory data showed WBC 10.2 hemoglobin 10.6 and platelets 510. Recent B12 level is 397. 01/19/2022 Patient is currently lying in the bed. Awake alert oriented 3. Status post abdominal wound debridement. Currently being continued on antibiotics in the form of Zosyn. Follow up culture reports. Continue wound care. PT OT was consulted and case management consult for possible rehab Transfer. Patient otherwise denied any complaints of chest pain or shortness of breath. No nausea vomiting or abdominal pain or diarrhea. Tolerating oral diet. Current medications reviewed. Objective - Vital Signs Vital signs: Vital Signs Temp 98.8 F 01/19/22 12:36 Pulse 103 H 01/19/22 12:36 Resp 20 01/19/22 12:36 BP 143/66 01/19/22 12:36 Pulse Ox 96 01/19/22 12:36 Intake & Output 01/18/22 01/19/22 01/19/22 18:59 06:59 18:59 Intake Total 900 1200 Output Total 100 Balance 900 1100 Weight 136.078 kg Intake: IV 0 500 Intake, IV Titration 900 700 Amount Lactated Ringers 1,000 ml 900 600 @ 75 mls/hr IV .[id number] [facility] Rx#:[id number] Piperacillin-Tazobactam 3 100 .375 gm In Sodium Chloride 0.9% 100 ml @ 25 mls/hr IVPB Q8HR [facility] Rx# :[id number] Output: Estimated Blood Loss 100 Other: Voiding Method Toilet Toilet # Voids 2 2 - Exam PHYSICAL EXAMINATION: Patient is lying in the bed comfortably, no acute distress, awake alert and oriented. Morbidly obese.. HEENT: Normocephalic. Neck is supple. Pupils reactive. Nostrils clear. Oral cavity is moist. Neck reveals no JVD, carotid bruits, or thyromegaly. CHEST EXAMINATION: Trachea is central. Symmetrical expansion. Bibasilar diminished sounds. Lung love clear to auscultation and percussion. CARDIAC: Normal S1, S2 with no gallops. No murmurs ABDOMEN: Soft. Bowel sounds normal. No organomegaly. No abdominal bruits. Extremities: reveal no edema. No clubbing or cyanosis Neurologically awake, alert, oriented x3 with well-coordinated movements. No f ocal deficits noted Skin: No rash. Patient was found have right lower, mid abdominal wound 10 x 15 cm in size with purulent base and foul-smelling. Surrounding redness. Psychiatric: Coperative. Nonsuicidal Musculoskeletal: No joint swelling or deformity. Normal range of motion. - Labs CBC & Chem 7: 01/19/22 05:14 01/19/22 05:14 Labs: Abnormal Lab Results - Last 24 Hours (Table) 01/18/22 01/19/22 01/19/22 Range/Units 20:51 05:14 05:14 WBC 11.2 H (3.8-10.6) k/uL RBC 3.22 L 3.38 L (3.80-5.40) m/uL Hgb 10.6 L 11.2 L (11.4-16.0) gm/dL MCV 105.7 H 104.9 H (80.0-100.0) fL Plt Count 510 H 604 H (150-450) k/uL BUN/Creatinine Ratio 21.67 H (12.00-20.00) Ratio Glucose 131 H (70-110) mg/dL Calcium 8.4 L (8.7-10.3) mg/dL ALT 48 H (8-44) U/L Total Protein 6.0 L (6.2-8.2) g/dL Albumin 2.8 L (3.8-4.9) g/dL Albumin/Globulin Ratio 0.88 L (1.60-3.17) g/dL Assessment and Plan Assessment: Abdominal wall wound infection with purulent discharge and foul-smelling. History of debridement with wound VAC on 01/02/2022. Status post debridement on 01/18/2022. Diabetes type 2 jil-lyslapy-hccostneo Hypothyroidism Bipolar/schizoaffective disorder Macrocytic anemia hemoglobin 10.7, B12 397 morbid obesity BMI 47.0 DVT prophylaxis with Lovenox subcu. Plan: Patient will be continued on antibiotics in form of Zosyn. Patient is status post debridement on 01/18/2022.. Continued with pain management and follow up culture reports. Continue with insulin sliding scale andbetter blood sugar control and continue with home medications and follow closely. We will continue to follow with you. Further recommendations based on the clinical course. Time with Patient: Greater than 30
--- NOTE | 2022-01-19 14:32 | P.PN ---
Subjective Progress Note Date: 01/19/22 CHIEF COMPLAINT: Abdominal wall wound infection with necrotic fat HISTORY OF PRESENT ILLNESS: Patient is status post debridement of abdominal wall. Postop day #1 Patient is controlled. She denies any nausea vomiting. She is tolerating regular diet. She's afebrile. WBC 11.2 hemoglobin 11.2 platelets 604 creatinine 0.6 Patient seen and examined with Dr. Villalobos PHYSICAL EXAM: VITAL SIGNS: Reviewed. GENERAL: Well-developed in no acute distress. HEENT: No sclera icterus. Extraocular movements grossly intact. Moist buccal mucosa. Head is atraumatic, normocephalic. ABDOMEN: Soft. Nondistended. Nontender. NEUROLOGIC: Alert and oriented. Cranial nerves II through XII grossly intact. ASSESSMENT: 1. Abdominal wall wound infection with necrotic fat status post debridement of abdominal wall PLAN: -Continue local wound care with wet-to-dry dressing changes -Patient can be discharged from surgical standpoint. However patient is hesitant about changing dressings at home. care manager has been consult for possible ECF placement for wound care -Case discussed with infectious disease and appreciate their antibiotic recommendations -Patient will not be discharged today. Will await case reviewer's assessment for possible ECF placement -Consult PT OT for assessment for ECF placement Physician Security Representative note has been reviewed by physician. Signing provider agrees with the documented findings, assessment, and plan of care. Objective - Vital Signs Vital signs: Vital Signs Temp 98.8 F 01/19/22 12:36 Pulse 103 H 01/19/22 12:36 Resp 20 01/19/22 12:36 BP 143/66 01/19/22 12:36 Pulse Ox 96 01/19/22 12:36 Intake & Output 01/18/22 01/19/22 01/19/22 18:59 06:59 18:59 Intake Total 900 1200 Output Total 100 Balance 900 1100 Weight 136.078 kg Intake: IV 0 500 Intake, IV Titration 900 700 Amount Lactated Ringers 1,000 ml 900 600 @ 75 mls/hr IV .[id number] [facility] Rx#:[id number] Piperacillin-Tazobactam 3 100 .375 gm In Sodium Chloride 0.9% 100 ml @ 25 mls/hr IVPB Q8HR [facility] Rx# :[id number] Output: Estimated Blood Loss 100 Other: Voiding Method Toilet Toilet # Voids 2 2 - Labs CBC & Chem 7: 01/19/22 05:14 01/19/22 05:14 Labs: Abnormal Lab Results - Last 24 Hours (Table) 01/18/22 01/19/22 01/19/22 Range/Units 20:51 05:14 05:14 WBC 11.2 H (3.8-10.6) k/uL RBC 3.22 L 3.38 L (3.80-5.40) m/uL Hgb 10.6 L 11.2 L (11.4-16.0) gm/dL MCV 105.7 H 104.9 H (80.0-100.0) fL Plt Count 510 H 604 H (150-450) k/uL BUN/Creatinine Ratio 21.67 H (12.00-20.00) Ratio Glucose 131 H (70-110) mg/dL Calcium 8.4 L (8.7-10.3) mg/dL ALT 48 H (8-44) U/L Total Protein 6.0 L (6.2-8.2) g/dL Albumin 2.8 L (3.8-4.9) g/dL Albumin/Globulin Ratio 0.88 L (1.60-3.17) g/dL
--- NOTE | 2022-01-19 23:22 | P.PN ---
Subjective Progress Note Date: 01/19/22 Principal diagnosis: Abdominal wound infection Patient is a 61 year female with recent incisional hernia repair subsequently admitted to hospital with infected mesh was removed debridement of the wound and wound VAC application on 01/03/2020 to now with readmission to the hospital with worsening abdominal wound concerning for secondary infection. Patient is status post debridement of the wound completed on 01/18/2022 On today's evaluation that is 01/19/2022, patient remains to be afebrile, the patient abdominal pain is currently controlled, the patient denies any chest pain shortness of breath or cough no nausea no vomiting and no diarrhea Objective - Vital Signs Vital signs: Vital Signs Temp 98.8 F 01/19/22 12:36 Pulse 103 H 01/19/22 12:36 Resp 20 01/19/22 12:36 BP 143/66 01/19/22 12:36 Pulse Ox 96 01/19/22 12:36 Intake & Output 01/18/22 01/19/22 01/19/22 18:59 06:59 18:59 Intake Total 900 1200 Output Total 100 Balance 900 1100 Weight 136.078 kg Intake: IV 0 500 Intake, IV Titration 900 700 Amount Lactated Ringers 1,000 ml 900 600 @ 75 mls/hr IV .[id number] [facility] Rx#:[id number] Piperacillin-Tazobactam 3 100 .375 gm In Sodium Chloride 0.9% 100 ml @ 25 mls/hr IVPB Q8HR [facility] Rx# :[id number] Output: Estimated Blood Loss 100 Other: Voiding Method Toilet Toilet # Voids 2 2 - Exam GENERAL DESCRIPTION: Middle-aged female lying in bed in no distress RESPIRATORY SYSTEM: Unlabored breathing , decreased breath sounds at bases HEART: S1 S2 regular rate and rhythm , ABDOMEN: Soft , abdominal wound is currently dressed EXTREMITIES: No edema feet - Labs CBC & Chem 7: 01/19/22 05:14 01/19/22 05:14 Labs: Abnormal Lab Results - Last 24 Hours (Table) 01/18/22 01/19/22 01/19/22 Range/Units 20:51 05:14 05:14 WBC 11.2 H (3.8-10.6) k/uL RBC 3.22 L 3.38 L (3.80-5.40) m/uL Hgb 10.6 L 11.2 L (11.4-16.0) gm/dL MCV 105.7 H 104.9 H (80.0-100.0) fL Plt Count 510 H 604 H (150-450) k/uL BUN/Creatinine Ratio 21.67 H (12.00-20.00) Ratio Glucose 131 H (70-110) mg/dL Calcium 8.4 L (8.7-10.3) mg/dL ALT 48 H (8-44) U/L Total Protein 6.0 L (6.2-8.2) g/dL Albumin 2.8 L (3.8-4.9) g/dL Albumin/Globulin Ratio 0.88 L (1.60-3.17) g/dL Assessment and Plan (1) Abdominal wall cellulitis Current Visit: Yes Status: Acute Code(s): L03.311 - CELLULITIS OF ABDOMINAL WALL SNOMED Code(s): 60831394 Plan: 1patient with abdominal wound infection in this patient started with infected mesh which was discontinued on her recent visit and is status post debridement of the wound culture that was positive for strep and anaerobic gram-negative with worsening of abdominal wound and concern for possible deep infection. 2patient is status post surgical debridement of all the necrotic tissue deep cultures were requested but not done 3patient to continue with the Zosyn 3.375 g every 8 hours, with no cultures to guide antibiotic therapy, plan is for Rocephin and Flagyl oral combination if the patient is going to fdc versus Ceftin and oral Flagyl if going home this was discussed with the Nurse practitioner for admitting team Time with Patient: Less than 30
[2022-01-20] MEDS: PIPERACILLIN-TAZOBACTAM 3.375 GM in SODIUM CHLORIDE 0.9% 100 ML IVPB SCH ×3 (00:29→17:05)
[2022-01-20] MEDS: HYDROmorphone 1 MG/ML 1 ML SYRINGE IVP PRN ×6 (00:30→21:46)
[2022-01-20] MEDS: ENOXAPARIN 40 MG/0.4 ML SYRINGE SQ SCH (08:30)
[2022-01-20 09:14] LABS: Basophils # (A) 0.05 X 10*3/uL (0.00-0.10); Basophils % (A) 0.4 %; Eosinophils # (A) 0.41 X 10*3/uL (0.04-0.35); Eosinophils % (A) 3.2 %; HCT 28.2 % (37.2-46.3); HGB 9.1 g/dL (12.0-15.0); Immature Grans, Automated 0.9 %; Lymphocytes # (A) 2.61 X 10*3/uL (0.90-5.00); Lymphocytes % (A) 20.6 %; MCHC 32.3 g/dL (32.0-37.0); MCV 99.3 fL (80.0-97.0); Mean Platelet Volume 9.4 fL (9.5-12.2); Monocytes # (A) 0.99 X 10*3/uL (0.20-1.00); Monocytes % (A) 7.8 %; NRBC Per 100 WBC 0 /100 WBCS (0.0-0.0); Neutrophils # (A) 8.52 X 10*3/uL (1.80-7.70); Neutrophils % (A) 67.1 %; Platelet Count 433 X 10*3/uL (140-440); RBC 2.84 X 10*6/uL (4.10-5.20); RDW 15.1 % (11.5-14.5); WBC 12.69 X 10*3/uL (4.50-10.00)
--- NOTE | 2022-01-20 12:31 | P.DS ---
Providers Date of admission: 01/16/22 17:37 Expected date of discharge: 01/20/22 Attending physician: Serg Villalobos Consults: 01/16/22 17:24 Consult Physician Urgent Consulting Provider: Dhiraj Aguilar Consult Reason/Comments: Nonhealing abdominal ulcer Do you want consulting provider notified?: Yes 01/16/22 17:27 Consult Physician Urgent Consulting Provider: Sonia Srivastava Consult Reason/Comments: medical management Do you want consulting provider notified?: Yes Primary care physician: Physician Nonstaff Hospital Course: Discharge diagnosis 1. Abdominal wall wound vac infection with necrotic fat status post debridement of abdominal wall Hospital course This is a 61-year-old female with abdominal wound VAC infection. Patient has had prior abdominal wound infections. Patient had incisional hernia repair and removal of infected mesh and placement of wound VAC on 01/02/2022. Patient reports that she had been doing well and then went to follow-up with the wound care service yesterday and was found to have infection at the abdominal wound site and necrotic tissue. She reports noting that the tissue along the abdominal wall had started turning darker color of the last 1-2 days. She was transferred from [facility]. She did have a white count of 15.6 and lactic acid was normal at that time. Patient is status post debridement of the abdominal wall. Her abdominal wound is packed with wet-to-dry dressing. Patient will continue this local wound care at the detention. Patient also seen by infectious disease who is recommending Rocephin and Flagyl for 2 more weeks. Patient will continue wound care at the detention. Patient is up and ambulating. She's afebrile. Her pain is controlled. She is having bowel movements. She is stable for discharge. Please refer to chart for any further details. Physician Vp Production note has been reviewed by physician. Signing provider agrees with the documented findings, assessment, and plan of care. Patient Condition at Discharge: Stable Plan - Discharge Summary Discharge Rx Participant: Yes New Discharge Prescriptions: New metroNIDAZOLE [Flagyl] 500 mg PO TID #42 tab cefTRIAXone [Rocephin] 2,000 mg IVP Q24HR #14 each HYDROcodone/APAP 7.5-325MG [Fulda 7.5-325] 1 tab PO Q6HR PRN 3 Days #12 tab PRN Reason: Pain Continue metFORMIN HCL [Glucophage] 500 mg PO DAILY PRN PRN Reason: HIGH BLOOD SUGAR Ziprasidone [Geodon] 60 mg PO BID-W/MEALS Topiramate [Topamax] 100 mg PO BID Ibuprofen [Motrin] 600 mg PO Q6HR PRN #40 tab PRN Reason: Pain LORazepam [Ativan] 0.5 mg PO HS PRN #3 tab PRN Reason: Anxiety lamoTRIgine [LaMICtal] 50 mg PO DAILY Docusate [Colace] 100 mg PO DAILY Levothyroxine Sodium [Synthroid] 25 mcg PO DAILY Cyclobenzaprine [Flexeril] 5 mg PO Q8H PRN PRN Reason: Muscle Pain Discontinued Ibuprofen 800 mg PO TID PRN PRN Reason: Pain Discharge Medication List metFORMIN HCL [Glucophage] 500 mg PO DAILY PRN 08/24/17 [History] Docusate [Colace] 100 mg PO DAILY 12/29/21 [History] Levothyroxine Sodium [Synthroid] 25 mcg PO DAILY 12/29/21 [History] Topiramate [Topamax] 100 mg PO BID 12/29/21 [History] Ziprasidone [Geodon] 60 mg PO BID-W/MEALS 12/29/21 [History] lamoTRIgine [LaMICtal] 50 mg PO DAILY 12/29/21 [History] Ibuprofen [Motrin] 600 mg PO Q6HR PRN #40 tab 01/03/22 [Rx] Cyclobenzaprine [Flexeril] 5 mg PO Q8H PRN 01/16/22 [History] HYDROcodone/APAP 7.5-325MG [Fulda 7.5-325] 1 tab PO Q6HR PRN 3 Days #12 tab 01/20/22 [Rx] LORazepam [Ativan] 0.5 mg PO HS PRN #3 tab 01/20/22 [Rx] cefTRIAXone [Rocephin] 2,000 mg IVP Q24HR #14 each 01/20/22 [Rx] metroNIDAZOLE [Flagyl] 500 mg PO TID #42 tab 01/20/22 [Rx] Follow up Appointment(s)/Referral(s): [facility],Home Care [NON-STAFF] - 1 Week [facility],Infusion [NON-STAFF] - 1 Week Nonstaff,Physician [Primary Care Provider] - 1-[facility] [[facility]ERR[facility] - 1 Week eSrg Villalobos MD [STAFF PHYSICIAN] - 1 Week Activity/Diet/Wound Care/Special Instructions: No lifting over 10 pounds Shower daily. No soaking or tub baths for 2 weeks Very light activity until you are reevaluated at your follow up appointment with your surgeon Continue local wound care with wet-to-dry dressing changes daily with Kerlix Discharge Disposition: TRANSFER TO SNF/ECF
[2022-01-20] MEDS: LACTATED RINGERS 1,000 ML IV SCH (15:53)
[2022-01-20 20:31] VITALS: RESP 16
--- NOTE | 2022-01-20 21:18 | P.PN ---
Subjective Progress Note Date: 01/20/22 Principal diagnosis: Abdominal wound infection Patient is a 61 year female with recent incisional hernia repair subsequently admitted to hospital with infected mesh was removed debridement of the wound and wound VAC application on 01/03/2020 to now with readmission to the hospital with worsening abdominal wound concerning for secondary infection. Patient is status post debridement of the wound completed on 01/18/2022 On today's evaluation that is 01/20/2022, patient denies any fever and chills, the patient abdominal pain is controlled, the patient denies any chest pain shortness of breath or cough, the patient denies nausea no vomiting and no diarrhea Objective - Vital Signs Vital signs: Vital Signs Temp 98 F 01/20/22 12:28 Pulse 80 01/20/22 12:28 Resp 19 01/20/22 12:28 BP 129/72 01/20/22 12:28 Pulse Ox 96 01/20/22 12:28 Intake & Output 01/19/22 01/20/22 01/20/22 18:59 06:59 18:59 Intake Total 860 550 Balance 860 550 Intake: Intake, IV Titration 550 Amount Lactated Ringers 1,000 ml 450 @ 75 mls/hr IV .[id number] [facility] Rx#:[id number] Piperacillin-Tazobactam 3 100 .375 gm In Sodium Chloride 0.9% 100 ml @ 25 mls/hr IVPB Q8HR [facility] Rx# :[id number] Oral 860 Other: Voiding Method Toilet Toilet # Voids 2 - Exam GENERAL DESCRIPTION: Middle-aged female lying in bed in no distress RESPIRATORY SYSTEM: Unlabored breathing , decreased breath sounds at bases HEART: S1 S2 regular rate and rhythm , ABDOMEN: Soft , abdominal wound is currently dressed EXTREMITIES: No edema feet - Labs CBC & Chem 7: 01/20/22 06:14 01/19/22 05:14 Labs: Abnormal Lab Results - Last 24 Hours (Table) 01/20/22 Range/Units 06:14 WBC 12.69 H (4.50-10.00) X 10*3/uL RBC 2.84 L (4.10-5.20) X 10*6/uL Hgb 9.1 L (12.0-15.0) g/dL Hct 28.2 L (37.2-46.3) % MCV 99.3 H (80.0-97.0) fL RDW 15.1 H (11.5-14.5) % MPV 9.4 L (9.5-12.2) fL Immature Gran # 0.11 H (0.00-0.04) X 10*3/uL Neutrophils # 8.52 H (1.80-7.70) X 10*3/uL Eosinophils # 0.41 H (0.04-0.35) X 10*3/uL Assessment and Plan (1) Abdominal wall cellulitis Current Visit: Yes Status: Acute Code(s): L03.311 - CELLULITIS OF ABDOMINAL WALL SNOMED Code(s): 95743423 Plan: 1patient with abdominal wound infection in this patient started with infected mesh which was discontinued on her recent visit and is status post debridement of the wound culture that was positive for strep and anaerobic gram-negative with worsening of abdominal wound and concern for possible deep infection. 2patient is status post surgical debridement of all the necrotic tissue deep cultures were requested but not done 3patient to continue with the Zosyn 3.375 g every 8 hours, with no cultures to guide antibiotic therapy, on the basis of last culture which was strep and anaerobes patient did get midline and plan is for Rocephin 2 g daily along with oral Flagyl for 2 weeks on discharge Time with Patient: Less than 30
[2022-01-21] MEDS: PIPERACILLIN-TAZOBACTAM 3.375 GM in SODIUM CHLORIDE 0.9% 100 ML IVPB SCH ×2 (00:50→07:27)
[2022-01-21] MEDS: HYDROmorphone 1 MG/ML 1 ML SYRINGE IVP PRN ×2 (00:51→07:31)
[2022-01-21 05:26] VITALS: BP 121/72; PULSE 79; TEMP 98.1
[2022-01-21] MEDS: LACTATED RINGERS 1,000 ML IV SCH (07:25)
[2022-01-21] MEDS: ENOXAPARIN 40 MG/0.4 ML SYRINGE SQ SCH (07:27)
== END 2022-01-21 10:20 | DRG 863 ==
LOC: EC 15:34 → 5NMEDONC 17:37
PROVIDERS: ADMIT Surgery; ATTEND Surgery
PROC: 0HD7XZZ Extraction of Abdomen Skin, External Approach (ICD-10-PCS; principal; 2022-01-18 14:35)
DX: T81.41XA Infection following a procedure, superficial incisional surgical site, initial encounter (principal); L03.311 Cellulitis of abdominal wall; Z68.42 Body mass index [BMI] 45.0-49.9, adult; D53.9 Nutritional anemia, unspecified; E03.9 Hypothyroidism, unspecified; E11.9 Type 2 diabetes mellitus without complications; E66.01 Morbid (severe) obesity due to excess calories; F17.210 Nicotine dependence, cigarettes, uncomplicated; F25.9 Schizoaffective disorder, unspecified; L98.499 Non-pressure chronic ulcer of skin of other sites with unspecified severity; Z79.4 Long term (current) use of insulin; Z79.84 Long term (current) use of oral hypoglycemic drugs; Z79.890 Hormone replacement therapy; Z79.899 Other long term (current) drug therapy; Z98.890 Other specified postprocedural states; Z28.310 Unvaccinated for COVID-19
CPT/HCPCS: 36410; 76937; 80048; 80053; 85025; 88304; 96361; 96374; 99284